=== PATIENT | male | born 1965 | race African-American/Black ===

== ENCOUNTER 2022-03-19 19:42 | Emergency (ER) | payer MEDICAID ==
[~2022-03-19] VITALS: Ht 175.3 cm; Wt 77.0 kg
[~2022-03-19 19:42] MED LIST: AMLO2.5T45 PO; CALA180L4 TOP; COR3 PO; DIPH25CA83 MT; ETHA25TA2 PO; FAMO20TA8 PO; HYDR453.3 TOP; METO25TA6 PO; P20 PO
[2022-03-19 19:44] VITALS: BP 140/72
[2022-03-20] MEDS ORDERED: P20 MT (04:20)
[2022-03-20] MEDS ORDERED: DIPHENHYDRAMINE 25MG CAPSULE PO NR (04:30)
[2022-03-20] MEDS ORDERED: PREDNISONE 20MG TABLET PO NR (04:30)
== END 2022-03-20 05:15 | disposition home or self-care (01) ==
LOC: ER 19:42
DX: R21 Rash and other nonspecific skin eruption (principal); I87.2 Venous insufficiency (chronic) (peripheral); I50.9 Heart failure, unspecified
CPT/HCPCS: 99283; J7512; Q0163